=== PATIENT | female | born 1945 | race Caucasian/White ===

== ENCOUNTER → 2016-08-30 | Outpatient (CLI) | payer SELFPAY ==
--- NOTE | 2016-08-30 14:16 | CT ---
HISTORY: Screening, hypertension, family history Cardiac calcium scoring Technique: Multiple axial images of the chest were obtained on a [address] from the aortic arch to the base of the heart with noncontrast prospective gating. AEC was utilized. Findings: A total calcium score of 14 is observed. The patient is between the 25th and 50th percentile for ag e and sex with definite, at least mild, atherosclerotic plaque identified and mild or minimal Mccarthy ry narrowings likely. Hepatic steatosis is incidentally noted. IMPRESSION: Mild calcified atherosclerotic plaque. Reported By:
== END ==
LOC: RAD 11:06
PROVIDERS: ATTEND Family Medicine
DX: Z13.6 Encounter for screening for cardiovascular disorders (principal)